=== PATIENT | female | born 1970 | race Caucasian/White ===

== ENCOUNTER 2020-02-03 04:53 | Day surgery (SDC) | payer OTHER ==
[2020-02-02 09:01] VITALS: BMI 28.4
--- NOTE | 2020-02-03 14:34 | HP ---
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: No: Alzheimer's, CVA, Dementia, Migraine, Multiple Sclerosis, Peripheral Neuropathy, Parkinson's, Seizure, Syncope, TIA, Vertigo, Other Cardiovascular: No: AFIB, Aneurysm, Aortic Insufficiency, Aortic Stenosis, CAD, CHF, Deep Vein Thrombosis, HTN, Hyperlipdemia, AL, Mitral Insufficiency, Mitral Stenosis, Murmur, Pulmonary Hypertension, Other Pulmonary: No: Asthma, Bronchitis, Cancer, COPD, O2 Dependent, Pneumonia, Previously Intubated, Pulmonary Embolus, Pulmonary Fibrosis, Sleep Apnea, Other Gastrointestinal: No: Ascites, Cancer, Constipation, Crohn's Disease, Diverticul itis, Diverticulosis, Esophageal Varices, Gastritis, GERD, GI Bleed, Hemorrhoids, Hiatal Hernia, Inflamatory Bowel Disease, Irritable Bowel Disease, Pancreatitis, Peptic Ulcer Disease, Ulcerative Colitis, Other Hepatobiliary: No: Cirrhosis, Cholelithiasis, Cholecystitis, Choledocholithiasis, Hepatitis A, Hepatitis B, Hepatitis C, Other Renal/: No: Renal Failure, Renal Inusuff, BPH, Cancer, Hematuria, Hemodialysis, Neurogenic Bladder, Renal Calculi, UTI, Other Reproductive: No: Ectopic , Endometriosis, Fibroids, PID, Polycystic Ovary Syndrome, Postmenopausal, Other ...LMP: 12/21/19 ...: No Heme/Onc: No: Anemia, B12 Deficiency, Bleeding Disorder, Cancer, Current Chemotherapy, Current Radiation Therapy, Hemochromatosis, Hypercoaguable State, Myeloproliferative Synd, Sickle Cell Disease, Sickle Cell Trait, Thrombocytopenia, Other Infectious Disease: No: AIDS, C-Diff, Herpes Zoster, HIV, MRSA, STD's, Tuberculosis, VREF, Other Psych: No: Addictions, Anxiety, Bipolar, Depression, Panic, Psychosis, Schizophrenia, Other Musculoskeletal: No: Bursitis, Chronic low back pain, Hemiparesis, Hemiplegia, Osteoarthritis, Paraplegia, Other Rheumatology: No: Fibromyalgia, Gout, Lupus, Rheumatoid Arthritis, Sarcoidosis, Vasculitis, Other ENT: No: Allergic Rhinitis, Sinusitis, Other Endocrine: No: Madan's Disease, Chasidy's Disease, Diabetes Insipidus, Diabetes Mellitus, Hyperparathyroidism, Hyperthyroidism, Hypothyroidism, Osteopenia, SIADH, Other Dermatology: No: Basal Cell, Cellulitis, Eczema, Melanoma, Psoriasis, Squamous Cell, Other - Past Surgical History Past Surgical History: No: None, AAA Repair, AICD, Amputation, Appendectomy, Arthrosocopy, AV Fistula/Graft, Bariatric Surgery, Breast Biopsy, Bypass, CABG, Carotid Endarterectomy, Cataract Removal, Cholecystectomy, Colectomy, Colonoscopy, Colostomy, Craniotomy, , Cystectomy, Hernia Repair, Hysterectomy, Ileal Conduit, Ileosotomy, Joint Replacement, Kidney Transplant, Laminectomy, Liver Transplant, Mastectomy, Nephrectomy, Oopherectomy, Orchiectomy, Permanent Pacemaker, Prostatectomy, Splenectomy, Stent, Thoracotomy, TURP, Tonsillectomy, Tubal Ligation, Upper Endoscopy, Valve Replacement, Vasectomy, Vein Stripping/Ligation - Advance Directives Advance Directives: Yes: Living Will - Smoking History Smoking history: Never smoked Have you smoked in the past 12 months: No - Alcohol/Substance Use Hx Alcohol Use: No History of Substance Use: reports: None - Social History Usual Living Arrangement: Yes: With Significant Other Do you think of yourself as: Straight/Heterosexual ADL: Independent History of Recent Travel: No Home Medications - Allergies Allergies/Adverse Reactions: Allergies Allergy/AdvReac Type Severity Reaction Status Date / Time No Known Drug Allergies Allergy Verified 02/03/20 13:44 - Home Medications Home Medications: Ambulatory Orders Multivitamin 1 each PO DAILY 02/02/20 Family Medical History Family History: Denies Review of Systems - Review of Systems Constitutional: reports: No Symptoms Eyes: reports: No Symptoms HENT: reports: No Symptoms Neck: reports: No Symptoms Cardiovascular: reports: No Symptoms Respiratory: reports: No Symptoms Gastrointestinal: reports: No Symptoms Genitourinary: reports: No Symptoms Breasts: reports: No Symptoms Reported Musculoskeletal: reports: No Symptoms Integumentary: reports: No Symptoms Neurological: reports: No Symptoms Endocrine: reports: No Symptoms Hematology/Lymphatic: reports: No Symptoms Psychiatric: reports: No Symptoms Physical Examination Vital Signs: Vital Signs Temperature 97.8 F 02/03/20 13:40 Pulse Rate 72 02/03/20 13:40 Respiratory Rate 20 02/03/20 13:40 Blood Pressure 120/90 02/03/20 13:40 O2 Sat by Pulse Oximetry (%) 100 02/03/20 13:40 Constitutional: Yes: Well Nourished, No Distress, Calm Eyes: Yes: WNL, Conjunctiva Clear, EOM Intact HENT: Yes: WNL, Atraumatic, Normocephalic Neck: Yes: WNL, Supple, Trachea Midline Cardiovascular: Yes: WNL, Regular Rate and Rhythm Respiratory: Yes: WNL, Regular, CTA Bilaterally Gastrointestinal: Yes: WNL, Normal Bowel Sounds, Soft ...Rectal Exam: Yes: WNL Renal/: Yes: WNL Breast(s): Yes: WNL Musculoskeletal: Yes: WNL Extremities: Yes: WNL Edema: No Peripheral Pulses WNL: Yes Integumentary: Yes: WNL Wound/Incision: Yes: Clean/Dry, Well Approximated Neurological: Yes: WNL, Alert, Oriented ...Motor Strength: WNL Psychiatric: Yes: WNL, Alert, Oriented Assessment/Plan aborting myoma, 3 x 3 c in vagina
[2020-02-03] MEDS ORDERED: ONDANSETRON 4 MG/2 ML VIAL IVPUSH PRN (16:01)
[2020-02-03] MEDS ORDERED: oxyCODONE HCL 5 MG TABLET PO PRN ×3 (16:01→16:56)
[2020-02-03] MEDS ORDERED: ONDANSETRON 4 MG/2 ML VIAL ONE (16:14)
[2020-02-03] MEDS ORDERED: DEXAMETHASONE SOD PHOSPHATE 4 MG/1 ML VIAL ONE (16:14)
[2020-02-03] MEDS ORDERED: LIDOCAINE HCL/PF 2% SDV 5ML VIAL ONE (16:14)
[2020-02-03] MEDS ORDERED: PROPOFOL 20 ML ONE (16:15)
[2020-02-03] MEDS ORDERED: MIDAZOLAM HCL 2 MG/2 ML SINGLE DOSE VIAL ONE (16:15)
[2020-02-03] MEDS ORDERED: ACETAMINOPHEN 325 MG TABLET (FP) PO PRN (16:56)
[2020-02-03] MEDS ORDERED: IBUPROFEN 400 MG TABLET (FP) PO PRN (16:56)
[2020-02-03] MEDS ORDERED: LACTATED RINGERS SOLUTION 1,000 ML IV SCH (17:00)
--- NOTE | 2020-02-03 17:00 | OP ---
Operative Note - Note: Operative Date: 02/03/20 Pre-Operative Diagnosis: aborting myoma Operation: vag myomectomy Findings: aborting myoma 3 x4 cm Post-Operative Diagnosis: Same as Pre-op Surgeon: Jese Navarro Anesthesiologist/SLICING MACHINE FEEDER: Rob Cabrera Anesthesia: General Estimated Blood Loss (mls): 3 (no complications ) Operative Report Dictated: Yes
--- NOTE | 2020-02-03 17:37 | DS ---
Physical Examination Vital Signs: Vital Signs Temperature 97.7 F 02/03/20 16:48 Pulse Rate 62 02/03/20 17:00 Respiratory Rate 12 02/03/20 17:00 Blood Pressure 131/86 02/03/20 17:00 O2 Sat by Pulse Oximetry (%) 98 02/03/20 17:00 Constitutional: Yes: Well Nourished, No Distress, Calm Eyes: Yes: WNL, Conjunctiva Clear, EOM Intact HENT: Yes: WNL, Atraumatic, Normocephalic Neck: Yes: WNL, Supple, Trachea Midline Cardiovascular: Yes: WNL, Regular Rate and Rhythm Respiratory: Yes: WNL, Regular, CTA Bilaterally Gastrointestinal: Yes: WNL, Normal Bowel Sounds, Soft ...Rectal Exam: Yes: WNL Renal/: Yes: WNL Breast(s): Yes: WNL Musculoskeletal: Yes: WNL Extremities: Yes: WNL Edema: No Peripheral Pulses WNL: No Integumentary: Yes: WNL Wound/Incision: Yes: Clean/Dry, Well Approximated Neurological: Yes: WNL, Alert, Oriented ...Motor Strength: WNL Psychiatric: Yes: WNL, Alert, Oriented Discharge Summary Problems reviewed: Yes Reason For Visit: ABORTIVE MYOMA Procedures: Principal: vag myomectoy Other Procedures: none Hospital Course: uneventful Health Concerns: none Condition: Good - Instructions Diet, Activity, Other Instructions: Dr. nobles Motor Equipment Commanding Officer discharge instructions Physical activity Resume your normal everyday activity as tolerated no heavy lifting or exercise until seen by your surgeon. You may walk unlimited dieter of and climb stairs. You may resume driving the car when you feel safe and comfortable behind the wheel. No sexual activity as instructed by Dr. nobles Wound care If you have a bandage, leave it on, and keep dry for 48-72 hours. After that time discard the outer bandage. If they are tapes on the skin under the out of bandage leave them in place. They will peel off in the next 7 to 10 days. Do Not Peel them off. You may shower the day after surgery. If there are tapes present on the skin, you may shower over them. Diet There are no dietary restrictions. Eat healthy, high-fiber foods. Drink 6 to 8 glasses of liquid each day. This will assist in keeping your bowels are regular. Pain management You may take Tylenol or acetaminophen or Ibuprofen (for example, Motrin, Advil etc.) from my pain prescription medication is ordered should be taken as prescribed for moderate to severe pain. Call Dr. nobles for any of the following: Severe pain not relieved by medication Fever of 101 or higher Excessive bleeding or drainage on dressing Inability to urinate Call the office at [phone] for an appointment in seven days. Disposition: HOME - Home Medications Comprehensive Discharge Medication List: Ambulatory Orders Multivitamin 1 each PO DAILY 02/02/20 Prescription Drug Monitoring Program (I-STOP) results: I-STOP reviewed and no issues identified
--- NOTE | 2020-02-03 18:03 | OP ---
DATE OF OPERATION: 02/03/2020 PREOPERATIVE DIAGNOSIS: Aborting myoma. POSTOPERATIVE DIAGNOSIS: Aborting myoma. PROCEDURE: A 4 x 4 cm aborting myoma. Procedure is vaginal myomectomy. SURGEON: Jese Del Cid MD. ANESTHESIA: General. ANESTHESIOLOGIST: Rob Cabrera MD. INDICATION: A 49-year-old female patient was known to have anemia from constant menorrhagia. The patient came to office to be examined, and patient was found to have 4x4 cm of mass in the cervix and so that mass was biopsied, was sent to pathology, and was confirmed with myoma, and the stalk of the myoma was seen in the cervix. So patient was scheduled for outpatient surgery to remove the aborting myoma. Meantime, patient was found to be 12 weeks size, 14 weeks size of fibroid uterus. Patient preferred not to do hysterectomy or any other open abdominal surgery yet, wants to see this myomectomy, resolves the problem with menorrhagia. DESCRIPTION OF PROCEDURE: So patient was scheduled, patient taken to OR, and patient was placed in lithotomy position, and after general anesthesia was obtained, the patient's abdomen and pelvis was prepped and draped in the usual sterile manner. Heavy speculum was placed into patient's vagina. The same retractor was placed on anterior part of the cervix, and the cervix was visualized and aborting myoma with stalk was hanging off inside the vagina, and cervix myoma is about 4 x 4 cm, so tenaculum was brought into this myoma and grabbed it, and the stalk was visualized. The stalk was clamped with a Francia clamp, and then the stalk was proximal part close to the fibroid part of the stalk was coagulated, cut with the Bovie, and good hemostasis was obtained. Then 1 suture was applied to the other, and the stalk, and good hemostasis was obtained, and no bleeding was seen. We observed the bleeding for 5 minutes, no bleeding was seen, and good hemostasis. The stalk kind of retracted back to the uterus, and could not find the uterus any more, and examination was done under general anesthesia. Uterus appeared to be about 12 weeks size, still has some fibroids remaining inside the uterus. No complications. Tolerated procedure well. Blood loss 5 mL. Woke up from general anesthesia, transferred to recovery room in stable condition. JESE DEL CID MD [id number]
[2020-02-03 18:45] VITALS: PULSE 62
[2020-02-03 19:07] VITALS: BP 145/89; TEMP 97.8
--- NOTE | 2020-02-07 15:42 | PATH ---
Surgical Pathology Report Patient Name: ISSAC NERI [facility]. Rec. #: [id number] /Age/Gender: 1970 (Age: 49) / F Account: [id number] Location: [facility] Taken: 02/03/2020 Received: 02/06/2020 Reported: 02/07/2020 Physicians: Jese Navarro MD Specimen(s) Received FIBROID Clinical History Abortive myoma Final Diagnosis FIBROID, VAGINAL MYOMECTOMY: 13 G, LEIOMYOMA WITH VASCULAR CONGESTION, EDEMA, AND PATCHY MILD MIXED INFLAMMATORY INFILTRATE. Electronically Signed Hui Grajeda M.D. Gross Description Received in formalin labeled "fibroid," is a 13 g, 4.3 x 3.0 x 2.1 cm zamarripa, rubbery nodule. Sectioning reveals zamarripa, firm parenchyma. No areas of hemorrhage or necrosis are identified. Machine Leather Trimmer sections are submitted in 3 cassettes. /02/06/2020 saudi/02/06/2020
== END 2020-02-03 19:00 | disposition home or self-care (01) ==
LOC: JASU-SURG 04:53
PROVIDERS: ATTEND Obstetrics & Gynecology
PROC: 0UB97ZZ Excision of Uterus, Via Natural or Artificial Opening (ICD-10-PCS; principal; 2020-02-03 15:30)
DX: D25.9 Leiomyoma of uterus, unspecified (principal); N92.0 Excessive and frequent menstruation with regular cycle; D64.9 Anemia, unspecified
CPT/HCPCS: 36415; 84703; 86850; 86900; 86901; 88305-TC; 94760